=== PATIENT | female | born 1965 | race Caucasian/White ===

== ENCOUNTER 2017-07-02 13:06 | Inpatient (IN) | payer OTHER ==
[~2017-07-02] VITALS: Ht 157.5 cm; Wt 64.2 kg
[~2017-07-02 13:06] MED LIST: ALPR1TAB2 PO; AMLO-147 PO; CARI350T29 PO; CITA-104 PO; FOLI-49 PO; HYDR-762 PO; MESA400C PO; MULT-552 PO; NORT50CA PO; PANT40TA4 PO; TRAM50TA2 PO; TRAZ100T15 PO
[2017-07-02 15:05] VITALS: Ht 157.5 cm; Wt 64.2 kg
[2017-07-02 15:10] VITALS: BP 175/95; PULSE 83; RESP 18
[2017-07-02] MEDS: HYDROmorphONE 0.5 MG/0.5 ML SYG IV PRN ×2 (15:52→21:35)
--- NOTE | 2017-07-02 16:34 | HP ---
Date/Time of Note Date/Time of Note DATE: 07/02/17 TIME: 16:27 Assessment/Plan VTE Prophylaxis VTE Prophylaxis Intervention: SCD's Lines/Catheters IV Catheter Type (from Nrs): Saline Lock Assessment/Plan Chief Complaint/Hosp Course Assessment and plan 1. Small bowel traction. Patient did have CT scan of abdomen and pelvis consistent with SBO. Will get surgeon to follow. Will place NG tube. Analgesics and IV hydration 2. hx essential hypertension. Will provide with antihypertensives as needed 3. History of major depression. Continue on citalopram 4. Cigarette smoking. Cessation was advised. Admission process >40 minutes Discussed plan of care with Dr. Godinez Problems: HPI/ROS Admit Date/Time Admit Date/Time Jul 02, 2017 at 14:41 Hx of Present Illness this is a 52-year-old female with history of hypertension, major depressive disorder, reported multiple abdominal surgeries, came to [facility] due to reports of abdominal pain. Patient was initially at [facility] for abdominal pain that she reports was for 3 days duration. She reports her last bowel movement was 2 days ago. She has associated nausea but no vomiting. She reports having episodes of SBO in the past with the last one occurring one year ago. She did have CT scan of abdomen and pelvis done at [facility] that did show her to have findings consistent with small bowel obstruction. Due to insurance reason she was brought to [facility] for further evaluation. Patient did have further blood work done that did show her to have some leukocytosis likely reactive to her SBO. BMP otherwise unremarkable. She does report having diffuse abdominal pain. Bowel sounds are hypoactive. We will evaluate her for the aformentiond issues. ROS 12 point review of systems obtained and entirely negative except as mentioned in history of present illness PMH/Family/Social Past Medical History Medical/surgical history 1. Reported 2. Reported abdominal surgeries (details unknown) 3. Hypertension 4. Major depressive disorder Family History Significant Family History: no pertinent family hx Social History Alcohol Use: none Smoking Status: Current some day smoker (Smokes 10-15 cigarettes per day since the age of 14) Drug Use: none Exam/Review of Systems Vital Signs Vitals Vital Signs Date Time Temp Pulse Resp B/P Pulse Ox O2 Delivery O2 Flow Rate FiO2 07/02/17 15:10 98.3 83 18 175/95 94 Room Air Exam Constitutional: alert, oriented Head: normocephalic Eyes: nl conjunctiva Respiratory: clear to auscultation, normal air movement Cardiovascular: nl pulses, regular rate and rhythm Gastrointestinal: other (Hypoactive bowel sounds on auscultation), soft, tender Extremities: normal pulses Neurological: ACADEMIC SUPPORT COORDINATOR II-XII intact, nl mental status, nl speech Medications Medications Current Medications Hydromorphone HCl (Dilaudid) 1 mg Q4H PRN IV PAIN Last administered on t 15:52; Admin Dose 1 MG; Start 07/02/17 at 15:47 KEARA MILLIGAN Jul 02, 2017 16:34
[2017-07-02 16:45] VITALS: BP 156/87; PULSE 78
[2017-07-02] MEDS ORDERED: ACETAMINOPHEN 650 MG SUPP PR PRN (18:00)
[2017-07-02] MEDS ORDERED: DOCUSATE SODIUM 100 MG CAP PO PRN (18:00)
[2017-07-02] MEDS ORDERED: MAGNESIUM HYDROXIDE 30ML CUP PO PRN (18:00)
[2017-07-02] MEDS ORDERED: NACL 0.9% 3 ML SYG IV SCH (18:00)
[2017-07-02] MEDS ORDERED: BISACODYL 10 MG SUPP PR PRN (18:00)
[2017-07-02] MEDS ORDERED: ACETAMINOPHEN 325 MG TAB PO PRN (18:00)
[2017-07-02] MEDS: SOD CHLORIDE 0.9% 1,000 ML IV SCH (18:27)
[2017-07-02] MEDS ORDERED: hydrALAzine 20 MG INJ IV PRN (18:30)
--- NOTE | 2017-07-02 20:20 | RADRPT ---
PROCEDURE: Portable chest x-ray. CLINICAL INDICATION: Nasogastric tube placement. TECHNIQUE: Portable AP view of the chest. COMPARISON: None. FINDINGS: A nasogastric tube terminates in the stomach. No pulmonary edema or conolidation is identified. The cardiac silhouette is magnified. There are aortic calcifications. No pleural effusion is seen. Th ere is no pneumothorax. IMPRESSION: 1. Nasogastric tube tip in the stomach. 2. Aortic atherosclerosis. RPTAT: HTAR .Marcelino Sosa MD, Date Time Electronically viewed and signed by .Marcelino Sosa MD, on 07/02/2017 20:20 .R/
[2017-07-02 20:25] VITALS: BP 193/98; RESP 20
[2017-07-02 20:42] LABS: IRON 77 ug/dl (35-150)
[2017-07-02 20:44] LABS: ALBUMIN 4.3 g/dl (3.3-4.9); ALBUMIN/GLOBULIN RATIO 1.48; BILIRUBIN,INDIRECT 0.4 mg/dl (0-1.1); BILIRUBIN,TOTAL 0.4 mg/dl (0.2-1.3); CALCIUM 8.5 mg/dl (8.4-10.2); CREATININE 0.6 mg/dl (0.44-1.00); POTASSIUM 4.2 mmol/L (3.5-5.1); TOTAL PROTEIN 7.2 g/dl (6.1-8.1)
[2017-07-02 20:53] LABS: TOTAL IRON BINDING CAPACITY 327 ug/dl (241-421)
[2017-07-02 23:24] VITALS: BP 155/86; PULSE 88
[2017-07-03 02:16] VITALS: BP 166/92; RESP 18
[2017-07-03] MEDS: ONDANSETRON 4 MG INJ IV PRN (02:52)
[2017-07-03] MEDS: HYDROmorphONE 0.5 MG/0.5 ML SYG IV PRN ×6 (03:26→21:23)
[2017-07-03] MEDS: SOD CHLORIDE 0.9% 1,000 ML IV SCH ×3 (04:17→23:11)
[2017-07-03 04:19] VITALS: BP 142/83; PULSE 94
[2017-07-03] MEDS ORDERED: PANTOPRAZOLE 40 MG INJ IV SCH (06:00)
[2017-07-03 06:40] LABS: T3 UPTAKE 36.4 % (23.5-40.5)
[2017-07-03 06:43] LABS: ALBUMIN 3.4 g/dl (3.3-4.9); ALBUMIN/GLOBULIN RATIO 1.09; BILIRUBIN,INDIRECT 0.4 mg/dl (0-1.1); BILIRUBIN,TOTAL 0.4 mg/dl (0.2-1.3); CALCIUM 8.5 mg/dl (8.4-10.2); CHOL/HDL RATIO 3.2 RATIO; CREATININE 0.67 mg/dl (0.44-1.00); PHOSPHORUS 3.8 mg/dl (2.5-4.9); TOTAL PROTEIN 6.5 g/dl (6.1-8.1)
[2017-07-03 06:50] LABS: BASOPHILS % 0.2 % (0.0-2.0); EOSINOPHILS # 0.1 10^3/ul (0.0-0.5); EOSINOPHILS % 0.5 % (0.0-7.0); HEMATOCRIT 45.6 % (37.0-47.0); HEMOGLOBIN 14.5 g/dl (12.0-16.0); LYMPHOCYTES # 2.1 10^3/ul (0.8-2.9); LYMPHOCYTES % 16.3 % (15.0-51.0); MEAN CORPUSCULAR HEMOGLOBIN 30.5 pg (29.0-33.0); MEAN CORPUSCULAR HGB CONC 31.8 g/dl (32.0-37.0); MEAN PLATELET VOLUME 9.2 fl (7.4-10.4); MONOCYTE # 0.6 10^3/ul (0.3-0.9); MONOCYTES % 4.5 % (0.0-11.0); NEUTROPHILS % 78.2 % (39.0-77.0); PLATELET COUNT 291 10^3/UL (140-415); RED BLOOD COUNT 4.75 10^6/ul (4.20-5.40); RED CELL DISTRIBUTION WIDTH 12.3 % (11.5-14.5); WHITE BLOOD COUNT 12.8 10^3/ul (4.8-10.8)
[2017-07-03 06:54] LABS: THYROID STIMULATING HORMONE 0.352 MIU/L (0.465-4.680)
[2017-07-03 08:00] VITALS: BP 143/84; RESP 17
[2017-07-03 11:06] LABS: BASOPHILS % 0.2 % (0.0-2.0); EOSINOPHILS # 0.1 10^3/ul (0.0-0.5); EOSINOPHILS % 0.7 % (0.0-7.0); HEMATOCRIT 44.3 % (37.0-47.0); HEMOGLOBIN 14.2 g/dl (12.0-16.0); LYMPHOCYTES # 2.2 10^3/ul (0.8-2.9); LYMPHOCYTES % 18.8 % (15.0-51.0); MEAN CORPUSCULAR HEMOGLOBIN 30.8 pg (29.0-33.0); MEAN CORPUSCULAR HGB CONC 32.1 g/dl (32.0-37.0); MEAN CORPUSCULAR VOLUME 96.1 fl (82.0-101.0); MEAN PLATELET VOLUME 8.7 fl (7.4-10.4); MONOCYTE # 0.6 10^3/ul (0.3-0.9); MONOCYTES % 5.6 % (0.0-11.0); NEUTROPHIL # 8.6 10^3/ul (1.6-7.5); NEUTROPHILS % 74.4 % (39.0-77.0); PLATELET COUNT 271 10^3/UL (140-415); RED BLOOD COUNT 4.61 10^6/ul (4.20-5.40); RED CELL DISTRIBUTION WIDTH 12.4 % (11.5-14.5); WHITE BLOOD COUNT 11.5 10^3/ul (4.8-10.8)
[2017-07-03 11:31] LABS: ALBUMIN 3.7 g/dl (3.3-4.9); ALBUMIN/GLOBULIN RATIO 1.37; BILIRUBIN,INDIRECT 0.5 mg/dl (0-1.1); BILIRUBIN,TOTAL 0.5 mg/dl (0.2-1.3); CALCIUM 8.1 mg/dl (8.4-10.2); CREATININE 0.72 mg/dl (0.44-1.00); POTASSIUM 4.3 mmol/L (3.5-5.1); TOTAL PROTEIN 6.4 g/dl (6.1-8.1)
--- NOTE | 2017-07-03 13:40 | PN ---
Date/Time of Note Date/Time of Note DATE: 07/03/17 TIME: 12:16 Assessment/Plan VTE Prophylaxis VTE Prophylaxis Intervention: SCD's Lines/Catheters IV Catheter Type (from Nrsg): Peripheral IV Assessment/Plan Chief Complaint/Hosp Course Assessment and plan 1. Small bowel traction. Patient did have CT scan of abdomen and pelvis consistent with SBO. Surgeon to follow. NG tube in place. Continue IV hydration and analgesics 2. hx essential hypertension. Will provide with antihypertensives as needed 3. History of major depression. Continue on citalopram 4. Cigarette smoking. Cessation was advised. Disposition and plan: Continue NG tube. Await surgeon evaluation. Continue in- house monitoring. Discussed plan of care with Dr. Godinez Problems: Subjective 24 Hr Interval Summary Free Text/Dictation Reports less abdominal pain at this time. States that she could pass gas but has not had a bowel movement Exam/Review of Systems Vital Signs Vitals Vital Signs Date Time Temp Pulse Resp B/P Pulse Ox O2 Delivery O2 Flow Rate FiO2 07/03/17 08:00 98.0 91 17 143/84 95 07/02/17 15:10 Room Air Intake and Output 07/02/17 07/02/17 07/03/17 15:00 23:00 07:00 Intake Total 0 ml 1100 ml Output Total 700 ml Balance 0 ml 400 ml Exam Constitutional: alert, oriented Head: normocephalic Eyes: nl conjunctiva Respiratory: clear to auscultation, normal air movement Cardiovascular: nl pulses, regular rate and rhythm Gastrointestinal: soft, tender Extremities: normal pulses Neurological: INSTRUMENT MAINTENANCE SUPERVISOR II-XII intact, nl mental status, nl speech Results Result Diagram: 07/03/17 1049 07/03/17 1049 Results 24 hrs Laboratory Tests Test 07/02/17 17:57 07/02/17 19:48 07/03/17 05:03 07/03/17 10:49 Sodium Level 141 142 143 Potassium Level 4.2 4.0 4.3 Chloride Level 106 108 106 Carbon Dioxide Level 27 28 28 Anion Gap 12 10 13 Blood Urea Nitrogen 13 15 15 Creatinine 0.60 0.67 0.72 Glucose Level 110 104 96 Calcium Level 8.5 8.5 8.1 L Total Bilirubin 0.4 0.4 0.5 Direct Bilirubin 0.00 0.00 0.00 Indirect Bilirubin 0.4 0.4 0.5 Aspartate Amino Transf (AST/SGOT) 26 22 21 Alanine Aminotransferase (ALT/SGPT) 33 30 35 Alkaline Phosphatase 88 82 77 Total Protein 7.2 6.5 6.4 Albumin 4.3 3.4 3.7 Globulin 2.90 3.10 2.70 Albumin/Globulin Ratio 1.48 1.09 1.37 Iron Level 77 Total Iron Binding Capacity 327 Percent Iron Saturation 24 White Blood Count 12.8 H 11.5 H Red Blood Count 4.75 4.61 Hemoglobin 14.5 14.2 Hematocrit 45.6 44.3 Mean Corpuscular Volume 96.0 96.1 Mean Corpuscular Hemoglobin 30.5 30.8 Mean Corpuscular Hemoglobin Concent 31.8 L 32.1 Red Cell Distribution Width 12.3 12.4 Platelet Count 291 271 Mean Platelet Volume 9.2 # 8.7 Neutrophils % 78.2 H 74.4 Lymphocytes % 16.3 18.8 Monocytes % 4.5 5.6 Eosinophils % 0.5 0.7 Basophils % 0.2 0.2 Nucleated Red Blood Cells % 0.0 0.0 Neutrophils # 10.0 H 8.6 H Lymphocytes # 2.1 2.2 Monocytes # 0.6 0.6 Eosinophils # 0.1 0.1 Basophils # 0.0 0.0 Nucleated Red Blood Cells # 0.0 0.0 Hemoglobin A1c 5.2 Phosphorus Level 3.8 Magnesium Level 2.0 Triglycerides Level 60 Cholesterol Level 140 LDL Cholesterol, Calculated 85 HDL Cholesterol 43 Cholesterol/HDL Ratio 3.2 Lipase 217 Thyroid Stimulating Hormone (TSH) 0.352 L Free Thyroxine Index 2.26 Thyroxine (T4) 6.2 Triiodothyronine (T3) Uptake 36.4 Medications Medications Current Medications Sodium Chloride (NS) 1,000 ml @ 100 mls/hr Q10H IV Last administered on 04:17; Admin Dose 100 MLS/HR; Start 07/02/17 at 17:58 Ondansetron HCl (Zofran Inj) 4 mg Q6H PRN IV NAUSEA AND/OR VOMITING Last administered on 07/03/17 02:52; Admin Dose 4 MG; Start 07/02/17 at 18:00 Acetaminophen (Tylenol Tab) 650 mg Q6H PRN PO PAIN LEVEL 1-3 OR FEVER; Start 07/02/17 at 18:00 Acetaminophen (Tylenol Supp) 650 mg Q6H PRN [place] PAIN LEVEL 1-3 OR FEVER; Start 07/02/17 at 18:00 Docusate Sodium (Colace) 100 mg Q12H PRN PO CONSTIPATION; Start 07/02/17 at 18 :00 Magnesium Hydroxide (Milk Of Mag) 30 ml DAILY PRN PO CONSTIPATION; Start 07/02 at 18:00 Bisacodyl (Dulcolax Supp) 10 mg DAILY PRN [place] CONSTIPATION; Start 07/02/17 at 18:00 Pantoprazole (Protonix Iv) 40 mg DAILY@06 IV Last administered on 07/03/17 05 :27; Admin Dose 40 MG; Start 07/03/17 at 06:00 Hydralazine HCl (Apresoline) 10 mg Q4H PRN IV sbp>160 Last administered on 02:48; Admin Dose 10 MG; Start 07/02/17 at 18:30 Hydromorphone HCl (Dilaudid) 1 mg Q3H PRN IV PAIN Last administered on 10:49; Admin Dose 1 MG; Start 07/03/17 at 06:40 KEARA MILLIGAN Jul 03, 2017 13:40
[2017-07-03 14:07] VITALS: BP 144/79; RESP 16
--- NOTE | 2017-07-03 17:15 | CONS ---
Date/Time of Note Date/Time of Note DATE: 07/03/17 TIME: 16:59 Assessment/Plan Assessment/Plan Chief Complaint/Hosp Course 1. Small bowel obstruction: had bm today -ngt to low intermittent suction unless ambulating -ambulate -npo -ivf -sbft 2. Leukocytosis: likely reactive; doubt infective -as above -monitor 3. Hypocalcemia -optimize lytes 4. Hypertension -medical management 5. Overweight: bmi 26 -diet and exercise optimization -encourage weight loss Thank you. Patient seen and examined in collaboration with Dr. Shiva Comer. Problems: Consultation Date/Type/Reason Admit Date/Time Jul 02, 2017 at 14:41 Date of Consultation: Jul 03, 2017 Type of Consultation: surgical Reason for Consultation sbo Referring Provider: KEARA MILLIGAN of Present Illness Maddie De La Torre is a 52 yo woman who was transferred to [facility] with complaints of abdominal pain. She reports that her abdominal pain began 3 days prior seeking medical help. She describes the pain ans generalized abdominal pain, similar to the pain she experiences when she has a bowel obstruction. Associated symptoms include nausea with minimal vomiting. She reports having episodes of SBO in the past with the last one occurring one year ago. CT scan of abdomen and pelvis done at [facility] showed multiple fluid-filled distended small bowel loops consistent with small bowel obstruction. General surgery was asked to evaluate. Upon exam she is comfortable with NG tube. She has had a bowel movement and does not experience and nausea or vomiting. Constitutional: No febrile Eyes: No discharge ENT: No congestion Respiratory: No cough, No pain, No pleuritic pain, No shortness of breath Cardiovascular: No edema, No lightheadedness, No orthopenea, No palpitations Gastrointestinal: other (as above), No flatus Genitourinary: No discharge, No dysuria Musculoskeletal: No neck pain, No restricted range of motion Skin: No bruising, No erythema Neurologic: No confusion, No dizziness Endocrine: No polydypsia, No polyuria Lymphatic: No adenopathy Psychological: nl mood/affect, No anxiety Past Medical History hypertension major depressive disorder, Past Surgical History x2 ectopic pelvic abscess Family History Significant Family History: no pertinent family hx Social History Alcohol Use: none Smoking Status: Current some day smoker (Smokes 10-15 cigarettes per day since the age of 14) Drug Use: none Exam/Review of Systems Vital Signs Vitals Vital Signs Date Time Temp Pulse Resp B/P Pulse Ox O2 Delivery O2 Flow Rate FiO2 07/03/17 14:07 98.1 89 16 144/79 94 07/03/17 13:22 Nasal Cannula 2.0 Intake and Output 07/02/17 07/02/17 07/03/17 15:00 23:00 07:00 Intake Total 0 ml 1100 ml Output Total 700 ml Balance 0 ml 400 ml Exam Constitutional: alert, oriented Psych: nl mood/affect Head: atraumatic, normocephalic Eyes: nl lids, nl sclera ENMT: mucosa pink and moist, nl nasal mucosa & septum Neck: non-tender, supple Respiratory: clear to auscultation, normal air movement Cardiovascular: nl pulses, regular rate and rhythm Gastrointestinal: soft, tender (uupper quadrants) Musculoskeletal: nl extremities to inspection, nl gait and stance Extremities: normal pulses Neurological: nl mental status, nl speech, nl strength Skin: nl turgor, rash or lesions Results Result Diagram: 07/03/17 1049 07/03/17 1049 Results 24 hrs Laboratory Tests Test 07/02/17 17:57 07/02/17 19:48 07/03/17 05:03 07/03/17 10:49 Sodium Level 141 142 143 Potassium Level 4.2 4.0 4.3 Chloride Level 106 108 106 Carbon Dioxide Level 27 28 28 Anion Gap 12 10 13 Blood Urea Nitrogen 13 15 15 Creatinine 0.60 0.67 0.72 Glucose Level 110 104 96 Calcium Level 8.5 8.5 8.1 L Total Bilirubin 0.4 0.4 0.5 Direct Bilirubin 0.00 0.00 0.00 Indirect Bilirubin 0.4 0.4 0.5 Aspartate Amino Transf (AST/SGOT) 26 22 21 Alanine Aminotransferase (ALT/SGPT) 33 30 35 Alkaline Phosphatase 88 82 77 Total Protein 7.2 6.5 6.4 Albumin 4.3 3.4 3.7 Globulin 2.90 3.10 2.70 Albumin/Globulin Ratio 1.48 1.09 1.37 Iron Level 77 Total Iron Binding Capacity 327 Percent Iron Saturation 24 White Blood Count 12.8 H 11.5 H Red Blood Count 4.75 4.61 Hemoglobin 14.5 14.2 Hematocrit 45.6 44.3 Mean Corpuscular Volume 96.0 96.1 Mean Corpuscular Hemoglobin 30.5 30.8 Mean Corpuscular Hemoglobin Concent 31.8 L 32.1 Red Cell Distribution Width 12.3 12.4 Platelet Count 291 271 Mean Platelet Volume 9.2 # 8.7 Neutrophils % 78.2 H 74.4 Lymphocytes % 16.3 18.8 Monocytes % 4.5 5.6 Eosinophils % 0.5 0.7 Basophils % 0.2 0.2 Nucleated Red Blood Cells % 0.0 0.0 Neutrophils # 10.0 H 8.6 H Lymphocytes # 2.1 2.2 Monocytes # 0.6 0.6 Eosinophils # 0.1 0.1 Basophils # 0.0 0.0 Nucleated Red Blood Cells # 0.0 0.0 Hemoglobin A1c 5.2 Phosphorus Level 3.8 Magnesium Level 2.0 Triglycerides Level 60 Cholesterol Level 140 LDL Cholesterol, Calculated 85 HDL Cholesterol 43 Cholesterol/HDL Ratio 3.2 Lipase 217 Thyroid Stimulating Hormone (TSH) 0.352 L Free Thyroxine Index 2.26 Thyroxine (T4) 6.2 Triiodothyronine (T3) Uptake 36.4 Medications Medications Current Medications Sodium Chloride (NS) 1,000 ml @ 100 mls/hr Q10H IV Last administered on 13:49; Admin Dose 100 MLS/HR; Start 07/02/17 at 17:58 Ondansetron HCl (Zofran Inj) 4 mg Q6H PRN IV NAUSEA AND/OR VOMITING Last administered on 07/03/17 02:52; Admin Dose 4 MG; Start 07/02/17 at 18:00 Acetaminophen (Tylenol Tab) 650 mg Q6H PRN PO PAIN LEVEL 1-3 OR FEVER; Start 07/02/17 at 18:00 Acetaminophen (Tylenol Supp) 650 mg Q6H PRN [place] PAIN LEVEL 1-3 OR FEVER; Start 07/02/17 at 18:00 Docusate Sodium (Colace) 100 mg Q12H PRN PO CONSTIPATION; Start 07/02/17 at 18 :00 Magnesium Hydroxide (Milk Of Mag) 30 ml DAILY PRN PO CONSTIPATION; Start 07/02 at 18:00 Bisacodyl (Dulcolax Supp) 10 mg DAILY PRN [place] CONSTIPATION; Start 07/02/17 at 18:00 Hydralazine HCl (Apresoline) 10 mg Q4H PRN IV sbp>160 Last administered on 02:48; Admin Dose 10 MG; Start 07/02/17 at 18:30 Hydromorphone HCl (Dilaudid) 1 mg Q3H PRN IV PAIN Last administered on 14:24; Admin Dose 1 MG; Start 07/03/17 at 06:40 Famotidine (Pepcid Iv) 20 mg BID IV ; Start 07/03/17 at 21:00 MILES ROBERT NP Jul 03, 2017 17:10
[2017-07-03 20:14] VITALS: BP 145/76; RESP 18
[2017-07-03] MEDS: FAMOTIDINE 20 MG INJ IV SCH (21:22)
[2017-07-03] MEDS: NICOTINE (21 MG/24 HR) PATCH TRANSDERM SCH (23:12)
[2017-07-03] MEDS: LORAZEPAM 2 MG INJ IV PRN (23:12)
[2017-07-04 02:27] VITALS: BP 156/70; RESP 18
[2017-07-04] MEDS: HYDROmorphONE 0.5 MG/0.5 ML SYG IV PRN ×4 (03:47→15:23)
[2017-07-04] MEDS: ONDANSETRON 4 MG INJ IV PRN (03:52)
[2017-07-04 06:33] LABS: BASOPHILS % 0.4 % (0.0-2.0); EOSINOPHILS % 0.5 % (0.0-7.0); HEMATOCRIT 40.2 % (37.0-47.0); HEMOGLOBIN 12.6 g/dl (12.0-16.0); LYMPHOCYTES # 1.9 10^3/ul (0.8-2.9); LYMPHOCYTES % 23.1 % (15.0-51.0); MEAN CORPUSCULAR HEMOGLOBIN 30.7 pg (29.0-33.0); MEAN CORPUSCULAR HGB CONC 31.3 g/dl (32.0-37.0); MEAN CORPUSCULAR VOLUME 97.8 fl (82.0-101.0); MEAN PLATELET VOLUME 9.5 fl (7.4-10.4); MONOCYTE # 0.5 10^3/ul (0.3-0.9); MONOCYTES % 5.7 % (0.0-11.0); NEUTROPHIL # 5.8 10^3/ul (1.6-7.5); NEUTROPHILS % 69.9 % (39.0-77.0); PLATELET COUNT 224 10^3/UL (140-415); RED BLOOD COUNT 4.11 10^6/ul (4.20-5.40); WHITE BLOOD COUNT 8.3 10^3/ul (4.8-10.8)
[2017-07-04 06:55] LABS: CALCIUM 8.1 mg/dl (8.4-10.2); CREATININE 0.61 mg/dl (0.44-1.00); POTASSIUM 3.8 mmol/L (3.5-5.1)
[2017-07-04 08:00] VITALS: BP 152/83; RESP 18
[2017-07-04] MEDS: FAMOTIDINE 20 MG INJ IV SCH ×2 (08:19→20:39)
[2017-07-04] MEDS: SOD CHLORIDE 0.9% 1,000 ML IV SCH ×2 (08:20→17:16)
[2017-07-04] MEDS: NICOTINE (21 MG/24 HR) PATCH TRANSDERM SCH (08:20)
[2017-07-04] MEDS ORDERED: DIATR MEGLU/DIATRIZOATE SODIUM 120 ML BTL ONE (10:02)
[2017-07-04] MEDS: LORAZEPAM 2 MG INJ IV PRN ×3 (10:33→22:31)
--- NOTE | 2017-07-04 11:39 | PN ---
Date/Time of Note Date/Time of Note DATE: 07/04/17 TIME: 11:37 Assessment/Plan VTE Prophylaxis VTE Prophylaxis Intervention: SCD's Lines/Catheters IV Catheter Type (from Nrs): Peripheral IV Assessment/Plan Chief Complaint/Hosp Course 1. Small bowel traction. Patient did have CT scan of abdomen and pelvis consistent with SBO Patient had 2 bowel movements yesterday Patient states that she has an allergic reaction to the contrast using bowel follow-through's We will start a clear diet today Surgery consultation appreciated Of clamped NG tube 2. hx essential hypertension. Will provide with antihypertensives as needed 3. History of major depression. Continue on citalopram 4. Cigarette smoking. Cessation was advised. Disposition and plan: Anticipate DC in 1-2 days if tolerating p.o. diet and continues to have bowel movements Prophylaxis: SCDs Problems: Subjective 24 Hr Interval Summary Constitutional: no complaints Exam/Review of Systems Vital Signs Vitals Vital Signs Date Time Temp Pulse Resp B/P Pulse Ox O2 Delivery O2 Flow Rate FiO2 07/04/17 08:00 98.6 69 18 152/83 96 07/03/17 13:22 Nasal Cannula 2.0 Intake and Output 07/03/17 07/03/17 07/04/17 15:00 23:00 07:00 Intake Total 900 ml 300 ml 1300 ml Balance 900 ml 300 ml 1300 ml Exam Constitutional: alert, oriented Respiratory: clear to auscultation Cardiovascular: regular rate and rhythm Gastrointestinal: soft, No distended Musculoskeletal: nl extremities to inspection Results Result Diagram: 07/04/17 0551 07/04/17 0551 Results 24 hrs Laboratory Tests Test 07/04/17 05:51 White Blood Count 8.3 # Red Blood Count 4.11 L Hemoglobin 12.6 Hematocrit 40.2 Mean Corpuscular Volume 97.8 Mean Corpuscular Hemoglobin 30.7 Mean Corpuscular Hemoglobin Concent 31.3 L Red Cell Distribution Width 12.0 Platelet Count 224 Mean Platelet Volume 9.5 Neutrophils % 69.9 Lymphocytes % 23.1 Monocytes % 5.7 Eosinophils % 0.5 Basophils % 0.4 Nucleated Red Blood Cells % 0.0 Neutrophils # 5.8 Lymphocytes # 1.9 Monocytes # 0.5 Eosinophils # 0.0 Basophils # 0.0 Nucleated Red Blood Cells # 0.0 Sodium Level 142 Potassium Level 3.8 Chloride Level 108 Carbon Dioxide Level 26 Anion Gap 12 Blood Urea Nitrogen 14 Creatinine 0.61 Glucose Level 60 #L Calcium Level 8.1 L Medications Medications Current Medications Sodium Chloride (NS) 1,000 ml @ 100 mls/hr Q10H IV Last administered on 08:20; Admin Dose 100 MLS/HR; Start 07/02/17 at 17:58 Ondansetron HCl (Zofran Inj) 4 mg Q6H PRN IV NAUSEA AND/OR VOMITING Last administered on 07/04/17 03:52; Admin Dose 4 MG; Start 07/02/17 at 18:00 Acetaminophen (Tylenol Tab) 650 mg Q6H PRN PO PAIN LEVEL 1-3 OR FEVER; Start 07/02/17 at 18:00 Acetaminophen (Tylenol Supp) 650 mg Q6H PRN [place] PAIN LEVEL 1-3 OR FEVER; Start 07/02/17 at 18:00 Docusate Sodium (Colace) 100 mg Q12H PRN PO CONSTIPATION; Start 07/02/17 at 18 :00 Magnesium Hydroxide (Milk Of Mag) 30 ml DAILY PRN PO CONSTIPATION; Start 07/02 at 18:00 Bisacodyl (Dulcolax Supp) 10 mg DAILY PRN [place] CONSTIPATION; Start 07/02/17 at 18:00 Hydralazine HCl (Apresoline) 10 mg Q4H PRN IV sbp>160 Last administered on 02:48; Admin Dose 10 MG; Start 07/02/17 at 18:30 Hydromorphone HCl (Dilaudid) 1 mg Q3H PRN IV PAIN Last administered on 07:39; Admin Dose 1 MG; Start 07/03/17 at 06:40 Famotidine (Pepcid Iv) 20 mg BID IV Last administered on 07/04/17 08:19; Admin Dose 20 MG; Start 07/03/17 at 21:00 Lorazepam (Ativan) 0.5 mg Q6H PRN IV anxiety Last administered on 07/04/17 10 :33; Admin Dose 0.5 MG; Start 07/03/17 at 22:00 Nicotine (Nicoderm 21 Mg/ 24hr) 1 patch DAILY TRANSDERM Last administered on 23:12; Admin Dose 1 PATCH; Start 07/03/17 at 22:00 FANNY PAYNE Jul 04, 2017 11:39
[2017-07-04 14:00] VITALS: BP 167/74; RESP 20
[2017-07-04] MEDS: HYDROmorphONE 2 MG/ML SYG IV PRN ×2 (18:49→21:51)
[2017-07-04 20:00] VITALS: BP 127/58; RESP 20
[2017-07-05 02:00] VITALS: BP 140/73; RESP 20
[2017-07-05] MEDS: HYDROmorphONE 2 MG/ML SYG IV PRN ×5 (03:07→17:40)
--- NOTE | 2017-07-05 03:50 | PN ---
Date/Time of Note Date/Time of Note DATE: 07/04/17 TIME: 19:45 Assessment/Plan Lines/Catheters IV [facility]ter Type (from [facility]): Peripheral IV Assessment/Plan Chief Complaint/Hosp Course 1. Small bowel obstruction: improving (bowel function and tolerating liquids) -advance diet as tolerated -oob/ambulate -ivf -sbft refused since has allergic rxn (?) 2. Leukocytosis: likely reactive; doubt infective. Resolved. -as above -monitor 3. Hypocalcemia -optimize lytes 4. Hypertension -medical management Thank you, Late entty 07/04 Problems: Subjective 24 Hr Interval Summary Pain improved. Bowel function. No f/c. No cp/sob. No cough. No sz, rash, change in neuro or vision. Exam/Review of Systems Vital Signs Vitals Vital Signs Date Time Temp Pulse Resp B/P Pulse Ox O2 Delivery O2 Flow Rate FiO2 07/04/17 20:00 98.5 79 20 127/58 95 07/03/17 13:22 Nasal Cannula 2.0 Intake and Output 07/04/17 07/04/17 07/05/17 15:00 23:00 07:00 Intake Total 300 ml 1620 ml Balance 300 ml 1620 ml Exam Free Text/Dictation Constitutional: alert, oriented Psych: nl mood/affect Head: atraumatic, normocephalic Eyes: nl lids, nl sclera ENMT: mucosa pink and moist, nl nasal mucosa & septum Neck: non-tender, supple Respiratory: clear to auscultation, normal air movement Cardiovascular: nl pulses, regular rate and rhythm Gastrointestinal: soft, min tender (upper quadrants). No rebound/guarding/ rigidity Musculoskeletal: nl extremities to inspection, nl gait and stance Extremities: normal pulses Neurological: nl mental status, nl speech, nl strength Skin: nl turgor, rash or lesions Results Result Diagram: 07/04/17 0551 07/04/17 0551 NAOMI LANGSTON MD Jul 05, 2017 03:50
[2017-07-05 05:22] LABS: BASOPHILS % 0.3 % (0.0-2.0); EOSINOPHILS # 0.1 10^3/ul (0.0-0.5); HEMATOCRIT 39.5 % (37.0-47.0); HEMOGLOBIN 12.9 g/dl (12.0-16.0); LYMPHOCYTES # 2.1 10^3/ul (0.8-2.9); LYMPHOCYTES % 26.3 % (15.0-51.0); MEAN CORPUSCULAR HEMOGLOBIN 30.3 pg (29.0-33.0); MEAN CORPUSCULAR HGB CONC 32.7 g/dl (32.0-37.0); MEAN CORPUSCULAR VOLUME 92.7 fl (82.0-101.0); MEAN PLATELET VOLUME 9.8 fl (7.4-10.4); MONOCYTE # 0.6 10^3/ul (0.3-0.9); NEUTROPHIL # 5.2 10^3/ul (1.6-7.5); NEUTROPHILS % 65.1 % (39.0-77.0); RED BLOOD COUNT 4.26 10^6/ul (4.20-5.40); RED CELL DISTRIBUTION WIDTH 11.9 % (11.5-14.5)
[2017-07-05] MEDS: SOD CHLORIDE 0.9% 1,000 ML IV SCH ×2 (05:40→15:58)
[2017-07-05 05:41] LABS: CALCIUM 8.5 mg/dl (8.4-10.2); CREATININE 0.59 mg/dl (0.44-1.00); POTASSIUM 3.7 mmol/L (3.5-5.1)
[2017-07-05 06:02] LABS: POSITIVE DIFF @See below
[2017-07-05 06:43] LABS: PLATELET COUNT 189 10^3/UL (140-415)
[2017-07-05 08:00] VITALS: BP 158/80; RESP 20
[2017-07-05] MEDS: NICOTINE (21 MG/24 HR) PATCH TRANSDERM SCH (08:06)
[2017-07-05] MEDS: FAMOTIDINE 20 MG INJ IV SCH (08:06)
[2017-07-05] MEDS: LORAZEPAM 2 MG INJ IV PRN (10:17)
--- NOTE | 2017-07-05 11:05 | PDOCDIS ---
Discharge Instructions DIAGNOSIS Discharge Diagnosis 1. Small bowel obstruction. 2. History of hypertension 3. History of depression 4. History of cigarette smoking CONDITION Patient Condition: Stable HOME CARE INSTRUCTIONS: Diet Instructions: Regular FOLLOW UP/APPOINTMENTS Follow-up Plan 1. Follow-up with her primary care provider within a week OTHER ORDERS: Other Orders: 1. Stop smoking cigarettes KEARA MILLIGAN Jul 05, 2017 11:05
[2017-07-05] MEDS: ONDANSETRON 4 MG INJ IV PRN (13:23)
[2017-07-05 14:00] VITALS: BP 158/72; RESP 18
--- NOTE | 2017-07-05 18:12 | PN ---
Date/Time of Note Date/Time of Note DATE: 07/05/17 TIME: 18:11 Assessment/Plan Lines/Catheters IV Catheter Type (from [facility]): Peripheral IV Assessment/Plan Chief Complaint/Hosp Course 1. Small bowel obstruction: Improved (bowel function and diet) -diet -oob/ambulate -dc planning 2. Leukocytosis: likely reactive; doubt infective. Resolved. -as above -monitor 3. Hypocalcemia -optimize lytes 4. Hypertension -medical management Thank you, Problems: Subjective 24 Hr Interval Summary Pain improved. Bowel function with diet. No n/v. No f/c. No cp/sob. No cough. No sz, rash, change in neuro or vision. Exam/Review of Systems Vital Signs Vitals Vital Signs Date Time Temp Pulse Resp B/P Pulse Ox O2 Delivery O2 Flow Rate FiO2 07/05/17 14:00 98.8 88 18 158/72 97 07/03/17 13:22 Nasal Cannula 2.0 Intake and Output 07/04/17 07/04/17 07/05/17 15:00 23:00 07:00 Intake Total 300 ml 1620 ml 675 ml Output Total 2500 ml Balance 300 ml 1620 ml -1825 ml Exam Free Text/Dictation Constitutional: alert, oriented Psych: nl mood/affect Head: atraumatic, normocephalic Eyes: nl lids, nl sclera ENMT: mucosa pink and moist, nl nasal mucosa & septum Neck: non-tender, supple Respiratory: clear to auscultation, normal air movement Cardiovascular: nl pulses, regular rate and rhythm Gastrointestinal: soft, min tender (upper quadrants). No rebound/guarding/ rigidity Musculoskeletal: nl extremities to inspection, nl gait and stance Extremities: normal pulses Neurological: nl mental status, nl speech, nl strength Skin: nl turgor, rash or lesions Results Result Diagram: 07/05/17 0455 07/05/17 0455 NAOMI LANGSTON MD Jul 05, 2017 18:12
== END 2017-07-05 18:40 | disposition home or self-care (01) | DRG 390 ==
LOC: PP2 14:41
PROVIDERS: ADMIT Internal Medicine; ATTEND Internal Medicine
DX: K56.699 Other intestinal obstruction unspecified as to partial versus complete obstruction (principal); E83.51 Hypocalcemia; I10 Essential (primary) hypertension; D72.829 Elevated white blood cell count, unspecified; F17.200 Nicotine dependence, unspecified, uncomplicated; F32.9 Major depressive disorder, single episode, unspecified; E66.3 Overweight; Z68.26 Body mass index [BMI] 26.0-26.9, adult
CPT/HCPCS: 71010; 80048; 80053; 80061; 83036; 83540; 83690; 83735; 84100; 84436; 84443; 84479; 85025; C9113; J0360; J1170; J2060; J2405; J7030

== ENCOUNTER 2019-02-02 09:45 | Observation (INO) | payer OTHER ==
[~2019-02-02] VITALS: Ht 157.5 cm; Wt 61.0 kg
[~2019-02-02 09:45] MED LIST changes: -AMLO-147 PO; -CITA-104 PO; +CITA40TA6 PO; -MESA400C PO; +TRA100 PO; -TRAZ100T15 PO
[2019-02-02 09:50] VITALS: Ht 157.5 cm; Wt 61.0 kg
[2019-02-02] MEDS ORDERED: ACETAMINOPHEN 325 MG TAB PO PRN ×2 (10:00→10:30)
[2019-02-02] MEDS ORDERED: ONDANSETRON 4 MG INJ IV PRN ×2 (10:00→10:30)
[2019-02-02] MEDS ORDERED: KETOROLAC 30 MG INJ IV STA (10:09)
--- NOTE | 2019-02-02 10:18 | HP ---
Date/Time of Note Date/Time of Note DATE: 02/02/19 TIME: 10:18 Assessment/Plan VTE Prophylaxis SCD applied (from Nsg): Yes Pharmacological prophylaxis: LMWH Assessment/Plan Assessment/Plan 1. Acute chest pain, rule out ACS - most likely musculoskeletal given located on right chest wall and reproducible - serial troponins negative - ECHO noted with preserved EF 2. Acute neck spasms - may be trauma from lifting and stretching - will check MRI neck to rule out any pathological causes - refusing prednisone but will continue home dose Soma and naproxen BID - PT/OT consulted 3. Depression - continue home medications 4. h/o SBO - stable 5. Fibromyalgia and RA - will continue home pain control. reviewed on CURES 6. Back pain/ right shoulder pain - most likely from heavy lifting - supportive care 7. Diet - Cardiac 8. DVT ppx - LMWH 9. Disposition - Admit to Telemetry for workup of new onset paresthesia and chest discomfort. Most likely musculoskeletal. If MRI neck negative and pain controlled, will d/c home in next 24-48 hours HPI/ROS Admit Date/Time Admit Date/Time 02/02/19 Hx of Present Illness 53 yo F with PMH SBO, fibromyalgia, rheumatoid arthritis, ulcerative colitis, depression, hypertension, and chronic pain on opioids presented to OSH due to generalized weakness, neck pain and paresthesia down both arms bilaterally that started 4 days ago. Patient is also complaining of pain in right back area between scapula that radiates to right shoulder and anterior chest and down arms. She states she was doing yoga and stretching as well as lifting heavy items so may have tweaked her neck. At [facility] she was worked up for acute stroke given new onset paresthesia with CT head negative, CTA chest negative and CXR negative. Patient takes Oxycodone 20 which usually helps with her pain but states has not been helping. Patient has pressured speech during interview and at times incomprehensible. She is also in and out of sleep after given medications in ED. Patient denies any headaches, fevers, chills, nausea, vomiting, abdominal pain, or urinary issues. ROS All 12 systems reviewed and pertinent positives as per HPI. All others negative Constitutional: fatigue; No nausea Eyes: No discharge ENT: No congestion Respiratory: No cough, No shortness of breath, No sputum, No wheezing Cardiovascular: chest pain; No edema, No lightheadedness, No palpitations Gastrointestinal: No pain, No constipation, No diarrhea, No nausea, No vomiting Genitourinary: no complaints Musculoskeletal: bone/joint pain (right shoulder pain), neck pain; No restricted range of motion Skin: No laceration, No rash Neurologic: other (paresthesia bilaterally arms); No confusion, No focal-weakness, No syncope Endocrine: no complaints Lymphatic: no complaints Psychological: no complaints PMH/Family/Social Past Medical History Medical History: high cholesterol, hypertension, other (SBO in past, depression, fibromyalgia, ulcerative colitis, rheumatoid arthritis) Medications Current Medications Ondansetron HCl (Zofran Inj) 4 mg ER BRIDGE PRN IV NAUSEA/VOMITING; Start 02/02/19 at 10:00; Stop 02/03/19 at 09:59 Acetaminophen (Tylenol Tab) 650 mg ER BRIDGE PRN PO .MILD PAIN 1-3 OR TEMP; Start 02/02/19 at 10:00; Stop 02/03/19 at 09:59 Alprazolam (Xanax) 1 mg TID PRN PO anxiety; Start 02/02/19 at 10:30; Status UNV Carisoprodol (Soma) 350 mg TID PO ; Start 02/02/19 at 13:00; Status UNV Citalopram Hydrobromide (Celexa) 40 mg DAILY PO ; Start 02/03/19 at 09:00; Status UNV Folic Acid (Folic Acid) 1 mg DAILY PO ; Start 02/03/19 at 09:00; Status UNV Acetaminophen/ Hydrocodone Bitart ([place] (10/325)) 1 tab Q4H PRN PO PAIN LEVEL 7-10; Start 02/02/19 at 10:30; Status UNV Multivitamins Therapeutic (Theragran) 1 tab DAILY PO ; Start 02/03/19 at 09:00; Status UNV Nortriptyline HCl (Aventyl) 75 mg HS PO ; Start 02/02/19 at 21:00; Status UNV Pantoprazole (Protonix Tab) 40 mg BID@06,18 PO ; Start 02/02/19 at 18:00; Status UNV Tramadol HCl (Ultram) 50 mg BID PRN PO PAIN LEVEL 4-6; Start 02/02/19 at 10:30; Status UNV Trazodone HCl (Desyrel) 100 mg HS PO ; Start 02/02/19 at 21:00; Status UNV Coded Allergies: Sulfa (Sulfonamide Antibiotics) (Verified Allergy, Severe, HIVES, 02/02/19) Penicillins (Verified Allergy, Intermediate, Rash, Angry, 02/02/19) barium sulfate (Verified Allergy, Intermediate, 02/02/19) morphine (Verified Allergy, Intermediate, 02/02/19) metoclopramide (Verified Allergy, Unknown, 02/02/19) ITCHINESS Past Surgical History Past Surgical Hx: other (abdominal surgeries, c section) Family History Significant Family History: no pertinent family hx Social History Alcohol Use: none Smoking Status: Current every day smoker Drug Use: none Exam/Review of Systems Vital Signs Vitals Vital Signs Date Temp Pulse Resp B/P (MAP) Pulse Ox O2 O2 Flow FiO2 Time Delivery Rate 02/02/19 115/75 10:06 (88) 02/02/19 98.0 77 20 100 09:50 Exam Exam General: Patient in no acute distress. fatigued. answering questions appropriately HEENT: Atraumatic, normocephalic. The pupils are equal, round and reactive. Extraocular motor are intact Neck: Supple with full range of motion. para muscular spasms with tenderness Chest: tender right chest wall Lungs: Clear to auscultation bilaterally, no wheezing or rhonchi Heart: Normal S1-S2, Regular rhythm and rate. No murmur, S3, or S4 Abdomen: Soft , nontender, nondistended , bowel sounds are present. No guarding no rebound tenderness , No masses or organomegaly. No costovertebral temporal angle mass Extremities: Normal to inspection,no edema, cyanosis or clubbing Skin: no rashes or lesions Neuro: moving all extremities, motor intact, diminished sensation upper extremities. no focal deficits appreciated. CN 2-12 intact Additional Comments Home medications reviewed OSH CXR: no acute cardiopulmonary abnormalities CTA chest- negative CT head- negative NATANAEL ESPARZA MD February 02, 2019 10:18
[2019-02-02] MEDS ORDERED: traMADol 50 MG TAB PO PRN (10:30)
[2019-02-02] MEDS ORDERED: DOCUSATE SODIUM 100 MG CAP PO PRN (10:30)
[2019-02-02] MEDS ORDERED: NITROGLYCERIN (SL) 0.4 MG TAB SL PRN (10:30)
[2019-02-02] MEDS ORDERED: MAGNESIUM HYDROXIDE 30ML CUP PO PRN (10:30)
[2019-02-02] MEDS ORDERED: NACL 0.9% 3 ML SYG IV SCH (10:30)
[2019-02-02] MEDS ORDERED: HYDROCODONE/APAP (10/325) TAB PO PRN (10:30)
[2019-02-02] MEDS ORDERED: TEMA30CA PO (10:37)
[2019-02-02] MEDS ORDERED: ASPI-903 PO (10:37)
[2019-02-02] MEDS ORDERED: OXYC20TA41 PO (10:38)
--- NOTE | 2019-02-02 12:33 | ERD ---
ER Documentation Chief Complaint Chief Complaint generalized weakness x 4 days, transferred from [facility] HPI Patient is a 53-year-old female with hypertension who presents for chest pain. The patient was brought in by ambulance. The patient was transferred from [facility] as she is capitated to [facility] and there are no beds available in the hospital so she came to the emergency department. She was accepted by Dr. Goldberg from the panel team. Her pain started 4 to 5 days ago and radiates down her left arm. She said that it was initially "like knives and now it is like [id number]". The pain comes and goes. She had a CT chest done at [facility] which was negative and troponin was negative as well. Blood sugar was normal. ROS All systems reviewed and are negative except as per history of present illness. Medications Home Meds Reported Medications Oxycodone Hcl* (Oxycontin*) 20 Mg Tab.er.12h, 20 MG PO Q6H PRN for NEEDED, TAB 02/02/19 Aspirin* (Aspirin* Chew) 81 Mg Tab.chew, 81 MG PO DAILY, TAB.CHEW 02/02/19 Temazepam* (Temazepam*) 30 Mg Capsule, 30 MG PO HS PRN for INSOMNIA, CAP 02/02/19 Citalopram Hydrobromide* (Citalopram Hydrobromide*) 40 Mg Tablet, 40 MG PO DAILY, TAB 01/30/15 Nortriptyline Hcl* (Nortriptyline Hcl*) 50 Mg Capsule, 75 MG PO HS, TAB 01/30/15 Tramadol HCl (Tramadol HCl) 50 Mg Tab, 50 MG PO BID PRN for PAIN, TAB 01/30/15 Alprazolam* (Xanax*) 1 Mg Tab, 1 MG PO 3x aday, TAB 01/30/15 Folic Acid* (Folic Acid*) 1 Mg Tablet, 1 MG PO DAILY, TAB 01/30/15 Discontinued Reported Medications Hydrocodone Bit-Acetaminophen* ([place]*) 10-325 Mg Tablet, 1 TAB PO Q4H PRN for PAIN, TAB 03/04/15 Trazodone Hcl* (Trazodone Hcl*) 100 Mg Tablet, 100 MG PO HS, TAB 03/04/15 Multivitamins* (Once Daily*) 1 Tab Tablet, 1 TAB PO DAILY, TAB 01/30/15 Carisoprodol* (Carisoprodol*) 350 Mg Tablet, 350 MG PO TID for SPASM, TAB 01/30/15 Discontinued Scripts Pantoprazole (Protonix) 40 Mg Tabec, 40 MG PO BID@06,18, #60 3 Refills Prov:PERLA MARTI 03/11/15 Allergies Allergies: Coded Allergies: Sulfa (Sulfonamide Antibiotics) (Verified Allergy, Severe, HIVES, 02/02/19) Penicillins (Verified Allergy, Intermediate, Rash, Angry, 02/02/19) barium sulfate (Verified Allergy, Intermediate, 02/02/19) morphine (Verified Allergy, Intermediate, 02/02/19) metoclopramide (Verified Allergy, Unknown, 02/02/19) ITCHINESS PMhx/Soc History of Surgery: Yes (cs) Anesthesia Reaction: No Hx Neurological Disorder: No Hx Respiratory Disorders: No Hx Cardiac Disorders: Yes (htn) Hx Psychiatric Problems: No Hx Miscellaneous Medical Probl: Yes (fibromyalgia) Hx Alcohol Use: No Hx Substance Use: No Hx Tobacco Use: Yes (10 STICKS /DAY CURRENT SMOKER) Smoking Status: Current every day smoker FmHx Family History: No coronary disease Physical Exam Vitals Vital Signs Date Temp Pulse Resp B/P (MAP) Pulse Ox O2 O2 Flow FiO2 Time Delivery Rate 02/02/19 115/75 10:06 (88) 02/02/19 98.0 77 20 93/63 (73) 100 09:50 Physical Exam Const: No acute distress Head: Atraumatic Eyes: Normal Conjunctiva ENT: Normal External Ears, Nose and Mouth. Neck: Full range of motion. No meningismus. Resp: Clear to auscultation bilaterally Cardio: Regular rate and rhythm, no murmurs Abd: Soft, non tender, non distended. Normal bowel sounds Skin: No petechiae or rashes Back: No midline or flank tenderness Ext: No cyanosis, or edema Neur: Awake and alert Psych: Normal Mood and Affect Result Diagram: 02/02/19 1108 02/02/19 1108 Results 24 hrs Laboratory Tests Test 02/02/19 11:08 White Blood Count 7.5 10^3/ul Red Blood Count 4.26 10^6/ul Hemoglobin 12.9 g/dl Hematocrit 40.2 % Mean Corpuscular Volume 94.4 fl Mean Corpuscular Hemoglobin 30.3 pg Mean Corpuscular Hemoglobin Concent 32.1 g/dl Red Cell Distribution Width 12.3 % Platelet Count 216 10^3/UL Mean Platelet Volume 9.8 fl Immature Granulocytes % 0.100 % Neutrophils % 52.2 % Lymphocytes % 35.8 % Monocytes % 9.2 % Eosinophils % 2.3 % Basophils % 0.4 % Nucleated Red Blood Cells % 0.0 /100WBC Immature Granulocytes # 0.010 10^3/ul Neutrophils # 3.9 10^3/ul Lymphocytes # 2.7 10^3/ul Monocytes # 0.7 10^3/ul Eosinophils # 0.2 10^3/ul Basophils # 0.0 10^3/ul Nucleated Red Blood Cells # 0.0 10^3/ul Sodium Level 142 mmol/L Potassium Level 4.0 mmol/L Chloride Level 106 mmol/L Carbon Dioxide Level 33 mmol/L Anion Gap 3 Blood Urea Nitrogen 16 mg/dl Creatinine 0.70 mg/dl Est Glomerular Filtrat Rate mL/min > 60 mL/min Glucose Level 84 mg/dl Calcium Level 8.5 mg/dl Magnesium Level 2.3 mg/dl Total Bilirubin 0.4 mg/dl Direct Bilirubin 0.00 mg/dl Indirect Bilirubin 0.4 mg/dl Aspartate Amino Transf (AST/SGOT) 26 IU/L Alanine Aminotransferase (ALT/SGPT) 26 IU/L Alkaline Phosphatase 68 IU/L Creatine Kinase 196 IU/L Creatine Kinase Index 1.8 Creatinine Kinase MB (Mass) 3.50 ng/ml Troponin I < 0.012 ng/ml Total Protein 5.8 g/dl Albumin 3.5 g/dl Globulin 2.30 g/dl Albumin/Globulin Ratio 1.52 Triglycerides Level 57 mg/dl Cholesterol Level 151 mg/dl LDL Cholesterol, Calculated 102 mg/dl HDL Cholesterol 38 mg/dl Cholesterol/HDL Ratio 3.9 RATIO Thyroid Stimulating Hormone (TSH) Pending Current Medications Medications Dose Sig/April Start Time Status Last (Trade) Ordered Route PRN Stop Time Admin Dose Reason Admin Ondansetron 4 mg ER BRIDGE 02/02/19 DC HCl (Zofran PRN IV 10:00 Inj) NAUSEA/VOMITI 02/02/19 11:12 NG 650 mg ER BRIDGE 02/02/19 DC Acetaminophen PRN PO 10:00 (Tylenol .MILD PAIN 02/02/19 11:12 Tab) 1-3 OR TEMP Ketorolac 30 mg ONCE STAT 02/02/19 DC 02/02/19 Tromethamine IV 10:09 10:37 (Toradol) 02/02/19 10:10 Alprazolam 1 mg TID PRN 02/02/19 (Xanax) PO anxiety 10:30 350 mg TID PO 02/02/19 Carisoprodol 13:00 (Soma) Citalopram 40 mg DAILY PO 02/03/19 Hydrobromide 09:00 (Celexa) Folic Acid 1 mg DAILY PO 02/03/19 (Folic Acid) 09:00 1 tab Q4H PRN 02/02/19 Acetaminophen PO PAIN 10:30 / LEVEL 7-10 Hydrocodone Bitart ([place] (10325)) 1 tab DAILY PO 02/03/19 Multivitamins 09:00 Therapeutic (Theragran) 75 mg HS PO 02/02/19 Nortriptyline 21:00 HCl (Aventyl) 40 mg BID@06,18 02/02/19 Pantoprazole PO 18:00 (Protonix Tab) Tramadol 50 mg BID PRN 02/02/19 HCl PO PAIN 10:30 (Ultram) LEVEL 4-6 Trazodone 100 mg HS PO 02/02/19 HCl 21:00 (Desyrel) Aspirin 81 mg DAILY PO 02/04/19 (Aspirin) 09:00 1 tab Q5M PRN 02/02/19 Nitroglycerin SL CHEST 10:30 PAIN (Nitroglyceri n (Sl Tab) 0.4 Mg) IV Flush 3 ml PER 02/02/19 (NS 3 ml) PROTOCOL IV 10:30 Ondansetron 4 mg Q6H PRN 02/02/19 HCl (Zofran IV 10:30 Inj) NAUSEA/VOMITI NG 650 mg Q6H PRN 02/02/19 Acetaminophen PO .PAIN 1-3 10:30 (Tylenol OR TEMP Tab) Docusate 100 mg Q12H PRN 02/02/19 Sodium PO 10:30 (Colace) .CONSTIPATION Magnesium 30 ml DAILY PRN 02/02/19 Hydroxide PO 10:30 (Milk Of Mag) .CONSTIPATION Enoxaparin 40 mg DAILY SC 02/03/19 Sodium 09:00 (Lovenox) Procedures/MDM Smoking Cessation Therapy: Pt. was lectured for greater than 3 minutes on the health risks of continued smoking and the benefits of cessation. Patient is a 53-year-old female with hypertension and smoking history who presents with chest pain. The patient will be admitted to the panel team to a telemetry observation bed. I doubt pneumonia, pneumothorax, pulmonary embolism, or aortic dissection. The concern is for acute coronary syndrome. Departure Diagnosis: Primary Impression: Chest pain Chest pain type: unspecified Qualified Codes: R07.9 - Chest pain, unspecified Condition: JER Brown MD February 02, 2019 12:33
[2019-02-02] MEDS: ALPRAZOLAM 1 MG TAB PO PRN (12:39)
[2019-02-02] MEDS: CARISOPRODOL 350 MG TAB PO SCH (13:09)
[2019-02-02] MEDS ORDERED: HYDROmorphONE 0.5 MG/0.5 ML SYG IV PRN (14:00)
[2019-02-02] MEDS: NAPROXEN 500 MG TAB PO SCH ×2 (14:00→21:13)
[2019-02-02] MEDS ORDERED: LORAZEPAM 2 MG INJ IV PRN (14:30)
--- NOTE | 2019-02-02 14:45 | RADRPT ---
Echocardiogram Report Patient Name: POWER THAYERREPatient ID: [id number] : 1965 (53y 10m)Study Date: 02/02/2019 12:17:19 PM Gender: FAccession #: [id number] Tech: Clayton Harrington [facility] Location: [facility] Ref.Physician: NATANAEL ESPARZA Height(Cm): BSA: Weight(Kg): Quality: AdequateOrder Physician: NATANAEL ESPARZA Account #: Procedures: Echocardiographic Report: Transthoracic echocardiogram with complete 2D, M-Mode, and doppler examination. Indications: Evaluate Left Ventricular function. Measurements: 2D/M Mode Doppler Measurement Value Normal Range Measurement Value Normal Range LVIDd 2D 3.6 [ 3.8 - 5.2 ] cm AV Peak Shlomo 1.6 [ 100.0 - 170.0 ] cm/sec LVIDs 2D 2.3 [ 2.2 - 3.5 ] cm AV Peak PG 10.0 [ 2.0 - 9.0 ] mmHg LVPWd 2D 1.0 [ 0.6 - 0.9 ] cm LVOT Peak Shlomo 1.2 [ 70.0 - 110.0 ] cm/sec IVSd 2D 1.0 [ 0.6 - 0.9 ] cm LVOT Peak PG 6.0 [ 2.0 - 6.0 ] mmHg AoR Diam 2D 2.7 [ 2.3 - 3.1 ] cm MV E Peak Shlomo 1.0 [ 60.0 - 130.0 ] cm/sec EDV 2D 53.3 [ 46.0 - 106.0 ] ml MV A Peak Shlomo 0.9 [ 100.0 - 120.0 ] cm/sec ESV 2D 18.3 [ 14.0 - 42.0 ] ml MV E/A 1.1 [ 0.8 - 1.5 ] ratio EF 2D 65.7 [ 54.0 - 74.0 ] percent MV Decel Time 239 [ 104 - 258 ] msec LA Dimen 2D 3.1 [ 2.7 - 3.8 ] cm Lat E` Shlomo 0.2 [ 10.0 - 15.0 ] cm/sec Lateral E/E` 4.6 [ 1.0 - 2.0 ] ratio MV E/A 1.1 [ 0.8 - 1.5 ] ratio Findings: Left Ventricle: Normal left ventricular systolic function. Normal left ventricular cavity size. Normal left ventricular wall thickness. Ejection fraction is visually estimated at 65 %. Tissue Doppler/Mitral Doppler indices are consistent with impaired relaxation (Stage I diastolic dysfunction). Right Ventricle: Normal right ventricular size. Normal right ventricular systolic function. Left Atrium: The left atrium is normal in size. Right Atrium: The right atrium is normal in size. Mitral Valve: Mitral valve leaflets appear mildly thickened. Mild mitral annular calcification. Trace mitral regurgitation. Aortic Valve: Normal appearance of the aortic valve. No significant aortic stenosis or insufficiency. Tricuspid Valve: Normal appearance of the tricuspid valve. Unable to obtain RVSP due to minimal presence of tricuspid regurgitation. Pulmonic Valve: Pulmonic valve not well visualized. Pericardium: Normal pericardium with no significant pericardial effusion. Aorta: Normal aortic root. IVC: Normal size and normal respiratory collapse consistent with normal right atrial pressure. Conclusions: Normal left ventricular systolic function. Grade 1 diastolic dysfunction. Trace mitral regurigtation. Electronically Signed By: Makenzie Leos 2019-02-02 14:45:01 PDT
[2019-02-02 15:41] VITALS: BP 175/87; PULSE 76; RESP 20
[2019-02-02 17:10] VITALS: PULSE 79
[2019-02-02] MEDS: PANTOPRAZOLE (EC) 40 MG TAB PO SCH (18:00)
[2019-02-02 20:00] VITALS: BP 140/71; PULSE 72; RESP 20
[2019-02-02 20:30] VITALS: PULSE 83
[2019-02-02] MEDS ORDERED: traZODone 100 MG TAB PO SCH (21:00)
[2019-02-02] MEDS ORDERED: traZODone 100 MG TAB PO PRN (21:00)
[2019-02-02] MEDS: NORTRIPTYLINE 25 MG CAP PO SCH (21:14)
[2019-02-03] VITALS (12 sets, daily range): BP systolic 122–154; BP diastolic 73–85; PULSE 77–93; RESP 18–20
[2019-02-03] MEDS: CARISOPRODOL 350 MG TAB PO SCH ×6 (00:35→22:50)
[2019-02-03] MEDS: MULTIVITAMINS THERAPEUTIC TAB PO SCH (09:00)
[2019-02-03] MEDS: FOLIC ACID 1 MG TAB PO SCH (09:00)
[2019-02-03] MEDS: PANTOPRAZOLE (EC) 40 MG TAB PO SCH ×2 (09:00→17:54)
[2019-02-03] MEDS: NAPROXEN 500 MG TAB PO SCH (09:01)
[2019-02-03] MEDS: CITALOPRAM 20 MG TAB PO SCH (09:01)
[2019-02-03] MEDS: ENOXAPARIN 40 MG/0.4 ML SYG SC SCH (09:03)
--- NOTE | 2019-02-03 11:33 | PN ---
Date/Time of Note Date/Time of Note DATE: 02/03/19 TIME: 11:33 Assessment/Plan VTE Prophylaxis Risk score (from Ns)>0 risk: 1 SCD applied (from Ns): No SCD contraindicated: low risk/ambulating Pharmacological prophylaxis: LMWH Assessment/Plan Assessment/Plan 1. Acute chest pain - most likely musculoskeletal given located on right chest wall and reproducible - serial troponins negative - ECHO noted with preserved EF 2. Cervical disc bulges and stenosis - discussed steroid taper and physical therapy as initial treatment. If no improvement will need neurosurgery consultation as outpatient - MRI resulted - continue Soma - PT recommending outpatient PT 3. Depression - continue home medications 4. h/o SBO - stable 5. Fibromyalgia and RA - will continue home pain control. reviewed on CURES 6. Back pain/ right shoulder pain - most likely from heavy lifting - supportive care 7. UTI - UA positive - will send culture 8. Disposition - Will start prednisone taper and discussed outpatient physical therapy - started on IV antibiotics for UTI Result Diagram: 02/02/19 1108 02/02/19 1108 Results 24hrs Laboratory Tests Test 02/02/19 16:39 Creatine Kinase 179 Creatine Kinase Index 1.8 Creatinine Kinase MB (Mass) 3.29 H Troponin I < 0.012 Subjective 24 Hr Interval Summary Free Text/Dictation Patient still with weakness upper extremities and also complaining of urinary symptoms. More awake this am and denies any headaches or visual changes. Exam/Review of Systems Exam Vitals Vital Signs Date Temp Pulse Resp B/P (MAP) Pulse Ox O2 O2 Flow FiO2 Time Delivery Rate 02/03/19 98.1 92 20 146/84 98 Room Air 11:18 (104) Intake and Output 02/02/19 02/02/19 02/03/19 1515:00 23:00 07:00 IntakeIntake Total 420 ml BalanceBalance 420 ml Exam General: Patient in no acute distress. Neck: Supple with full range of motion. para muscular spasms with tenderness Lungs: Clear to auscultation bilaterally, no wheezing or rhonchi Heart: Normal S1-S2, Regular rhythm and rate. No murmur, S3, or S4 Abdomen: Soft , nontender, nondistended , bowel sounds are present. Skin: no rashes or lesions Neuro: moving all extremities, motor intact, diminished sensation upper extremities. no focal deficits appreciated. CN 2-12 intact Results Results 24hrs Laboratory Tests Test 02/02/19 16:39 Creatine Kinase 179 Creatine Kinase Index 1.8 Creatinine Kinase MB (Mass) 3.29 H Troponin I < 0.012 Medications Medication Current Medications Alprazolam (Xanax) 1 mg TID PRN PO anxiety Last administered on 02/02/19 12: 39; Admin Dose 1 MG; Start 02/02/19 at 10:30 Carisoprodol (Soma) 350 mg TID PO Last administered on 02/03/19 09:04; Admin Dose 350 MG; Start 02/02/19 at 13:00 Citalopram Hydrobromide (Celexa) 40 mg DAILY PO Last administered on 02/03/19 09:01; Admin Dose 40 MG; Start 02/03/19 at 09:00 Folic Acid (Folic Acid) 1 mg DAILY PO Last administered on 02/03/19 09:00; Admin Dose 1 MG; Start 02/03/19 at 09:00 Multivitamins Therapeutic (Theragran) 1 tab DAILY PO Last administered on 02/03/19 09:00; Admin Dose 1 TAB; Start 02/03/19 at 09:00 Nortriptyline HCl (Aventyl) 75 mg HS PO Last administered on 02/02/19 21:14; Admin Dose 75 MG; Start 02/02/19 at 21:00 Pantoprazole (Protonix Tab) 40 mg BID@06,18 PO Last administered on 02/03/19 09:00; Admin Dose 40 MG; Start 02/02/19 at 18:00 Tramadol HCl (Ultram) 50 mg BID PRN PO PAIN LEVEL 4-6; Start 02/02/19 at 10:30 Aspirin (Aspirin) 81 mg DAILY PO ; Start 02/04/19 at 09:00 Nitroglycerin (Nitroglycerin (Sl Tab) 0.4 Mg) 1 tab Q5M PRN SL CHEST PAIN; Start 02/02/19 at 10:30 IV Flush (NS 3 ml) 3 ml PER PROTOCOL IV ; Start 02/02/19 at 10:30 Ondansetron HCl (Zofran Inj) 4 mg Q6H PRN IV NAUSEA/VOMITING; Start 02/02/19 at 10:30 Acetaminophen (Tylenol Tab) 650 mg Q6H PRN PO .PAIN 1-3 OR TEMP; Start 02/02/19 at 10:30 Docusate Sodium (Colace) 100 mg Q12H PRN PO .CONSTIPATION; Start 02/02/19 at 10:30 Magnesium Hydroxide (Milk Of Mag) 30 ml DAILY PRN PO .CONSTIPATION; Start 02/02/19 at 10:30 Enoxaparin Sodium (Lovenox) 40 mg DAILY SC Last administered on 02/03/19at 09:03; Admin Dose 40 MG; Start 02/03/19 at 09:00 Oxycodone HCl (Roxicodone) 20 mg Q6H PRN PO SEVERE PAIN LEVEL 7-10; Start 02/02/19 at 14:00 Hydromorphone HCl (Dilaudid) 0.5 mg Q6H PRN IV SEVERE PAIN LEVEL 7-10; Start 02/02/19 at 14:00 Trazodone HCl (Desyrel) 100 mg HS PRN PO insomnia; Start 02/02/19 at 21:00 Prednisone (Prednisone) 40 mg DAILY PO ; Start 02/03/19 at 11:30 NATANAEL ESPARZA MD February 03, 2019 11:33
[2019-02-03] MEDS: oxyCODONE 5 MG TAB PO PRN ×2 (11:39→22:57)
[2019-02-03] MEDS: predniSONE 20 MG TAB PO SCH (11:47)
[2019-02-03] MEDS ORDERED: LEVOFLOXACIN 500MG/D5W (PMX) 100 ML IVPB SCH (16:00)
[2019-02-03] MEDS: ALPRAZOLAM 1 MG TAB PO PRN (16:49)
[2019-02-03] MEDS: NORTRIPTYLINE 25 MG CAP PO SCH ×3 (20:49→22:50)
[2019-02-04] VITALS (7 sets, daily range): BP systolic 124–148; BP diastolic 69–76; PULSE 82–96; RESP 16–19
[2019-02-04] MEDS: PANTOPRAZOLE (EC) 40 MG TAB PO SCH (04:33)
[2019-02-04] MEDS: ALPRAZOLAM 1 MG TAB PO PRN ×2 (04:33→11:54)
[2019-02-04] MEDS: MULTIVITAMINS THERAPEUTIC TAB PO SCH (08:23)
[2019-02-04] MEDS: CITALOPRAM 20 MG TAB PO SCH (08:23)
[2019-02-04] MEDS: predniSONE 20 MG TAB PO SCH (08:24)
[2019-02-04] MEDS: FOLIC ACID 1 MG TAB PO SCH (08:24)
[2019-02-04] MEDS: ENOXAPARIN 40 MG/0.4 ML SYG SC SCH (08:30)
[2019-02-04] MEDS ORDERED: ASPIRIN 81 MG TAB PO SCH (09:00)
[2019-02-04] MEDS ORDERED: ALPR1TAB2 PO (09:56)
[2019-02-04] MEDS ORDERED: LEVO750T8 PO (10:03)
[2019-02-04] MEDS ORDERED: PRED10TA PO (10:03)
--- NOTE | 2019-02-04 10:10 | PDOCDIS ---
Discharge Instructions DIAGNOSIS Discharge Diagnosis 1. Acute chest pain, musculoskeletal etiology 2. Cervical disc bulges and stenosis 3. Depression 4. h/o SBO 5. Fibromyalgia and RA 6. Back pain/ right shoulder pain 7. UTI CONDITION [id number] Patient Condition: [id number] Stable HOME CARE INSTRUCTIONS: [id number] Diet Instructions: [id number] Low Fat /Cholesterol FOLLOW UP/APPOINTMENTS Follow-up Plan 1. Follow up with your primary care physician in 1-2 weeks. 2. Physical therapist recommended outpatient physical therapy for your cervical bulging discs and make sure to ask your primary care physician for a referral 3. Continue taking Levaquin daily with next dose tonight, 02/04 until complete prescription 4. Continue on Prednisone taper as following. Starting tomorrow, 40mg then 30 mg for 3 days then 20mg for 3 days then 10mg for 3 days then stop 5. it is important not to completely stop Xanax and to taper off to avoid withdrawal symptoms including seizures 6. It is also important not to take sedating medications together which include Nortriptyline, Xanax, Soma, and Oxycodone 7. If experiencing any concerning symptoms, please return to the closest emergency department NATANAEL ESPARZA MD February 04, 2019 10:10
--- NOTE | 2019-02-04 10:14 | PN ---
Date/Time of Note Date/Time of Note DATE: 02/04/19 TIME: 10:11 Assessment/Plan VTE Prophylaxis Risk score (from Ns)>0 risk: 1 SCD applied (from [facility] [place] No SCD contraindicated: low risk/ambulating Pharmacological prophylaxis: NA/contraindicated Pharm contraindication: low risk/ambulating Assessment/Plan Assessment/Plan 1. Acute chest pain- resolved - musculoskeletal in etiology - serial troponins negative - ECHO noted with preserved EF 2. Cervical disc bulges and stenosis - continue steroid taper and will need physical therapy as outpatient - MRI resulted - will hold off on Soma given excess sedation - PT recommendations appreciated 3. Depression - continue home medications 4. h/o SBO - stable 5. Fibromyalgia and RA - will continue home pain control. reviewed on CURES 6. Back pain/ right shoulder pain - most likely from heavy lifting - supportive care 7. UTI - UA positive - will prescribe PO antibiotics and discussed with daughter if any issues once cultures return, will call 8. Disposition - Medically stable for discharge home once more awake Result Diagram: 02/02/19 1108 02/02/19 1108 Results 24hrs Laboratory Tests Test 02/03/19 14:30 Urine Color RONDA Urine Clarity CLOUDY A Urine pH 5.0 Urine Specific [place] 1.031 H Urine Ketones TRACE A Urine Nitrite POSITIVE A Urine Bilirubin NEGATIVE Urine Urobilinogen 2+ H Urine Leukocyte Esterase 1+ H Urine Microscopic RBC 5 Urine Microscopic WBC 43 H Urine Squamous Epithelial Cells FEW Urine Bacteria FEW A Urine Mucus MANY A Urine Hemoglobin NEGATIVE Urine Glucose NEGATIVE Urine Total Protein 1+ H Subjective 24 Hr Interval Summary Free Text/Dictation Patient is very lethargic this am and discussed with daughter she was given Oxycodone, Soma, and Nortriptyline at the same time last night and Xanax this am. Exam/Review of Systems Exam Vitals Vital Signs Date Temp Pulse Resp B/P (MAP) Pulse Ox O2 O2 Flow FiO2 Time Delivery Rate 02/04/19 84 08:35 02/04/19 98.0 18 148/72 99 Room Air 07:17 (97) Intake and Output 02/03/19 02/03/19 02/04/19 1515:00 23:00 07:00 IntakeIntake Total 250 ml 1500 ml 220 ml BalanceBalance 250 ml 1500 ml 220 ml Exam General: Patient in no acute distress. lethargic Neck: Supple with full range of motion. para muscular spasms cervical spine Lungs: Clear to auscultation bilaterally, no wheezing or rhonchi Heart: Normal S1-S2, Regular rhythm and rate. No murmur, S3, or S4 Abdomen: Soft , nontender, nondistended , bowel sounds are present. Skin: no rashes or lesions Results Results 24hrs Laboratory Tests Test 02/03/19 14:30 Urine Color RONDA Urine Clarity CLOUDY A Urine pH 5.0 Urine Specific [place] 1.031 H Urine Ketones TRACE A Urine Nitrite POSITIVE A Urine Bilirubin NEGATIVE Urine Urobilinogen 2+ H Urine Leukocyte Esterase 1+ H Urine Microscopic RBC 5 Urine Microscopic WBC 43 H Urine Squamous Epithelial Cells FEW Urine Bacteria FEW A Urine Mucus MANY A Urine Hemoglobin NEGATIVE Urine Glucose NEGATIVE Urine Total Protein 1+ H Medications Medication Current Medications Alprazolam (Xanax) 1 mg TID PRN PO anxiety Last administered on 02/04/19 04:33; Admin Dose 1 MG; Start 02/02/19 at 10:30 Carisoprodol (Soma) 350 mg TID PO Last administered on 02/03/19 22:50; Admin Dose 350 MG; Start 02/02/19 at 13:00 Citalopram Hydrobromide (Celexa) 40 mg DAILY PO Last administered on 02/04/19 08:23; Admin Dose 40 MG; Start 02/03/19 at 09:00 Folic Acid (Folic Acid) 1 mg DAILY PO Last administered on 02/04/19 08:24; Admin Dose 1 MG; Start 02/03/19 at 09:00 Multivitamins Therapeutic (Theragran) 1 tab DAILY PO Last administered on 02/04/19 08:23; Admin Dose 1 TAB; Start 02/03/19 at 09:00 Nortriptyline HCl (Aventyl) 75 mg HS PO Last administered on 02/03/19 22:50; Admin Dose 75 MG; Start 02/02/19 at 21:00 Pantoprazole (Protonix Tab) 40 mg BID@06,18 PO Last administered on 02/04/19 04:33; Admin Dose 40 MG; Start 02/02/19 at 18:00 Tramadol HCl (Ultram) 50 mg BID PRN PO PAIN LEVEL 4-6; Start 02/02/19 at 10:30 Aspirin (Aspirin) 81 mg DAILY PO Last administered on 02/04/19 08:23; Admin Dose 81 MG; Start 02/04/19 at 09:00 Nitroglycerin (Nitroglycerin (Sl Tab) 0.4 Mg) 1 tab Q5M PRN SL CHEST PAIN; Start 02/02/19 at 10:30 IV Flush (NS 3 ml) 3 ml PER PROTOCOL IV ; Start 02/02/19 at 10:30 Ondansetron HCl (Zofran Inj) 4 mg Q6H PRN IV NAUSEA/VOMITING; Start 02/02/19 at 10:30 Acetaminophen (Tylenol Tab) 650 mg Q6H PRN PO .PAIN 1-3 OR TEMP; Start 02/02/19 at 10:30 Docusate Sodium (Colace) 100 mg Q12H PRN PO .CONSTIPATION; Start 02/02/19 at 10:30 Magnesium Hydroxide (Milk Of Mag) 30 ml DAILY PRN PO .CONSTIPATION; Start 02/02/19 at 10:30 Enoxaparin Sodium (Lovenox) 40 mg DAILY SC Last administered on 02/04/19at 08:30; Admin Dose 40 MG; Start 02/03/19 at 09:00 Oxycodone HCl (Roxicodone) 20 mg Q6H PRN PO SEVERE PAIN LEVEL 7-10 Last administered on 02/03/19at 22:57; Admin Dose 20 MG; Start 02/02/19 at 14:00 Hydromorphone HCl (Dilaudid) 0.5 mg Q6H PRN IV SEVERE PAIN LEVEL 7-10; Start 02/02/19 at 14:00 Trazodone HCl (Desyrel) 100 mg HS PRN PO insomnia; Start 02/02/19 at 21:00 Prednisone (Prednisone) 40 mg DAILY PO Last administered on 02/04/19 08:24; Admin Dose 40 MG; Start 02/03/19 at 11:30 Levofloxacin/ Dextrose 100 ml @ 100 mls/hr Q24H IVPB Last administered on 02/03/19at 16:43; Admin Dose 100 MLS/HR; Start 02/03/19 at 16:00 NATANAEL ESPARZA MD February 04, 2019 10:14
[2019-02-04] MEDS ORDERED: ONDA4TAB14 PO (11:36)
--- NOTE | 2019-02-04 18:23 | DS ---
Date/Time of Note Date/Time of Note DATE: 02/04/19 TIME: 18:21 Discharge Summary Admission/Discharge Info Admit Date/Time February 02, 2019 at 09:52 Discharge Date/Time February 04, 2019 at 13:00 Discharge Diagnosis 1. Acute chest pain, musculoskeletal etiology 2. Cervical disc bulges and stenosis 3. Depression 4. h/o SBO 5. Fibromyalgia and RA 6. Back pain/ right shoulder pain 7. UTI Patient Condition: Stable Hx of Present Illness 53 yo F with PMH SBO, fibromyalgia, rheumatoid arthritis, ulcerative colitis, depression, hypertension, and chronic pain on opioids presented to OSH due to generalized weakness, neck pain and paresthesia down both arms bilaterally that started 4 days ago. Patient is also complaining of pain in right back area between scapula that radiates to right shoulder and anterior chest and down arms. She states she was doing yoga and stretching as well as lifting heavy items so may have tweaked her neck. At [facility] she was worked up for acute stroke given new onset paresthesia with CT head negative, CTA chest negative and CXR negative. Patient takes Oxycodone 20 which usually helps with her pain but states has not been helping. Patient has pressured speech during interview and at times incomprehensible. She is also in and out of sleep after given medications in ED. Patient denies any headaches, fevers, chills, nausea, vomiting, abdominal pain, or urinary issues. Hospital Course Patient was admitted for chest pain rule out and evaluation of bilateral upper extremity neuropathy. Patients troponins were negative and EKG normal so ACS was ruled out. MRI neck was performed with findings of bulging disc and stenosis. Patient was started on steroid taper and seen by physical therapy who recommended outpatient physical therapy sessions. Patient was also found with UTI and started on IV antibiotics. Patients presenting symptoms improved and she was discharged home in good condition with steroid taper and antibiotics for UTI treatment. Home Meds Active Scripts Ondansetron (Ondansetron Odt) 4 Mg Tab.rapdis, 4 MG PO Q6H PRN for NAUSEA AND/OR VOMITING for 5 Days, #20 TAB Prov:NATANAEL ESPARZA MD 02/04/19 Prednisone* (Prednisone*) 10 Mg Tab, 10 MG PO DAILY for 10 Days, #28 TAB 40mg for 1 day, 30mg for 3 days, 20mg for 3 days, 10mg for 3 days Prov:NATANAEL ESPARZA MD 02/04/19 Levofloxacin* (Levofloxacin*) 750 Mg Tablet, 750 MG PO DAILY for 6 Days, #6 TAB Prov:NATANAEL ESPARZA MD 02/04/19 Alprazolam* (Xanax*) 1 Mg Tab, 1 MG PO 3x aday PRN for ANXIETY for 7 Days, #21 TAB Prov:NATANAEL ESPARZA MD 02/04/19 Reported Medications Oxycodone Hcl* (Oxycontin*) 20 Mg Tab.er.12h, 20 MG PO Q6H PRN for NEEDED, TAB 02/02/19 Aspirin* (Aspirin* Chew) 81 Mg Tab.chew, 81 MG PO DAILY, TAB.CHEW 02/02/19 Temazepam* (Temazepam*) 30 Mg Capsule, 30 MG PO HS PRN for INSOMNIA, CAP 02/02/19 Citalopram Hydrobromide* (Citalopram Hydrobromide*) 40 Mg Tablet, 40 MG PO DAILY, TAB 01/30/15 Nortriptyline Hcl* (Nortriptyline Hcl*) 50 Mg Capsule, 75 MG PO HS, TAB 01/30/15 Tramadol HCl (Tramadol HCl) 50 Mg Tab, 50 MG PO BID PRN for PAIN, TAB 01/30/15 Folic Acid* (Folic Acid*) 1 Mg Tablet, 1 MG PO DAILY, TAB 01/30/15 Discontinued Reported Medications Hydrocodone Bit-Acetaminophen* ([place]*) 10-325 Mg Tablet, 1 TAB PO Q4H PRN for PAIN, TAB 03/04/15 Trazodone Hcl* (Trazodone Hcl*) 100 Mg Tablet, 100 MG PO HS, TAB 03/04/15 Multivitamins* (Once Daily*) 1 Tab Tablet, 1 TAB PO DAILY, TAB 01/30/15 Carisoprodol* (Carisoprodol*) 350 Mg Tablet, 350 MG PO TID for SPASM, TAB 01/30/15 Discontinued Scripts Pantoprazole (Protonix) 40 Mg Tabec, 40 MG PO BID@06,18, #60 3 Refills Prov:PERLA MARTI 03/11/15 Follow-up Plan 1. Follow up with your primary care physician in 1-2 weeks. 2. Physical therapist recommended outpatient physical therapy for your cervical bulging discs and make sure to ask your primary care physician for a referral 3. Continue taking Levaquin daily with next dose tonight, 02/04 until complete prescription 4. Continue on Prednisone taper as following. Starting tomorrow, 40mg then 30 mg for 3 days then 20mg for 3 days then 10mg for 3 days then stop 5. it is important not to completely stop Xanax and to taper off to avoid withdrawal symptoms including seizures 6. It is also important not to take sedating medications together which include Nortriptyline, Xanax, Soma, and Oxycodone 7. If experiencing any concerning symptoms, please return to the closest emergency department Primary Care Provider Care Physician No Primary Time spent on discharge: > 30 minutes NATANAEL ESPARZA MD February 04, 2019 18:23
== END 2019-02-04 13:00 | disposition home or self-care (01) ==
LOC: E/R 09:45 → 6WM 09:52
PROVIDERS: ADMIT Internal Medicine; ATTEND Internal Medicine
DX: R07.89 Other chest pain (principal); M50.90 Cervical disc disorder, unspecified, unspecified cervical region; M48.02 Spinal stenosis, cervical region; F32.9 Major depressive disorder, single episode, unspecified; I10 Essential (primary) hypertension; N39.0 Urinary tract infection, site not specified; M54.9 Dorsalgia, unspecified; M25.511 Pain in right shoulder; M79.7 Fibromyalgia; M06.9 Rheumatoid arthritis, unspecified; F17.210 Nicotine dependence, cigarettes, uncomplicated; Z79.82 Long term (current) use of aspirin
CPT/HCPCS: 72141; 80053; 80061; 81001; 82550; 82553; 83036; 83735; 84443; 84484; 85025; 87086; 93306; 97162; 97166; J1650; J1885; J1956; J7512; Z7500; Z7502; Z7610; G0378